=== PATIENT | male | born 1980 | race Caucasian/White ===

== ENCOUNTER 2022-09-15 13:39 | Emergency (ER) | payer SELFPAY ==
[~2022-09-15] VITALS: Ht 177.8 cm; Wt 70.0 kg
[2022-09-15] MEDS ORDERED: VIBRAMYCIN100 M2 PO (16:01)
[2022-09-15] MEDS ORDERED: HYDROCO/APAP1 TA9 PO (16:01)
[2022-09-15 16:33] VITALS: BP 130/89
== END 2022-09-15 16:34 | disposition home or self-care (01) | DRG 603 ==
LOC: ED 13:39
DX: L03.113 Cellulitis of right upper limb (principal)